=== PATIENT | female | born 2000 | race Two or more races ===

== ENCOUNTER 2020-09-09 15:03 | Emergency (ER) | payer MEDICAID, SELFPAY ==
[~2020-09-09] VITALS: Ht 149.9 cm; Wt 68.7 kg
[2020-09-09 15:13] VITALS: BP 122/75
--- NOTE | 2020-09-09 16:16 | NUR ---
Patient given discharge instructions and they have confirmed that they understand the instructions. Patient ambulatory with steady gait.
== END 2020-09-09 16:19 | disposition home or self-care (01) ==
LOC: ED 16:00
DX: U07.1 COVID-19 (principal); K08.89 Other specified disorders of teeth and supporting structures; R22.0 Localized swelling, mass and lump, head
CPT/HCPCS: 99283